=== PATIENT | male | born 1980 | race Caucasian/White ===

== ENCOUNTER 2019-06-21 20:17 | Emergency (ER) | payer OTHER, SELFPAY ==
--- NOTE | 2019-06-21 20:15 | DI.RAD_ITS ---
EXAM: XR CHEST 2V PA LATERAL CLINICAL HISTORY: chest pain TECHNIQUE: 2D digital imaging was performed. COMPARISON: No exams were available for comparison FINDINGS: Exam is limited by patient body habitus and suboptimal pulmonary inflation. Heart size is within nor mal limits. There is question of mild bilateral perihilar infiltrates versus mild pulmonary edema. No focal consolidation is seen. No effusions or pneumothorax is seen. IMPRESSION: Question of mild bilateral infiltrates.
[2019-06-21 20:26] VITALS: BP 163/98; PULSE 85; RESP 16; TEMP 37.1; O2SAT 97
[2019-06-21 20:29] VITALS: RESP 16
[2019-06-21 21:05] LABS: Abs Immature Grans 0.02 k/cumm (0.0-0.09); Absolute Basophil Count 0.01 k/cumm (0.0-0.2); Absolute Eosinophil Count 0.13 k/cumm (0.0-0.7); Absolute Lymphocyte Count 2.39 k/cumm (1.2-3.4); Absolute Monocyte Count 0.65 k/cumm (0.11-0.7); Absolute Neutrophil Count 3.37 k/cumm (1.2-6.7); Basophils % 0.2; HCT 41.8 % (40.0-50.0); HGB 14.5 g/dL (13.5-17.5); Immature Grans % 0.3 %; Lymphocytes % 36.4; Mean Corp. HGB Concentration 34.7 g/dL (32.0-36.0); Mean Corpuscular Hemoglobin 30.1 pg (27.0-33.0); Mean Corpuscular Volume 86.9 fL (80-95); Mean Platelet Volume 9.1 fL (8.0-11.0); Monocytes % 9.9; Neutrophils % 51.2; Platelet Count 282 x1000/uL (130-400); RBC 4.81 m/cumm (4.50-6.00); RBC Distribution Width 12.7 % (11.8-14.1); White Blood Cell Count 6.57 k/cumm (4.4-10.8)
--- NOTE | 2019-06-21 21:12 | DI.VRAD_ITS ---
PROCEDURE INFORMATION: Exam: XR Chest, 2 Views Exam date and time: 06/21/2019 8:56 PM Age: 38 years old Clinical indication: Other: Chest pain TECHNIQUE: Imaging protocol: XR of the chest Views: 2 views. COMPARISON: No relevant prior studies available. FINDINGS: Lungs: There is prominence of the interstitial markings. No focal consolidation. Pleural space: No pleural effusion. No pneumothorax. Heart/Mediastinum: Heart size is borderline. Bones/joints: Unremarkable. IMPRESSION: Prominent interstitial markings may be related to edema. Dictated and Authenticated by: Nicolas Robledo MD. Ordering:NITESH Casarez MD
[2019-06-21 21:17] LABS: ALT 88 U/L (16-63); AST 23 U/L (15-37); Albumin 4.1 g/dL (3.4-5.0); Alkaline Phosphatase 75 U/L (46-116); Anion Gap 7.7 mmol/L (3-11); BUN 16 mg/dL (7-18); Bilirubin, Total 0.3 mg/dL (0.2-1.0); CO2 29.3 mmol/L (21.0-32.0); CREATININE 1.13 mg/dL (0.70-1.30); Calcium 9.1 mg/dL (8.5-10.1); Chloride 104 mmol/L (98-107); Glucose 95 mg/dL (74-106); Sodium 141 mmol/L (136-145); Total Protein 7.9 g/dL (6.4-8.2)
[2019-06-21 21:19] LABS: Troponin I < 0.05 ng/Ml (<0.06)
[2019-06-21] MEDS: Aspirin 81 MG CHEW 324 MG CH (21:30)
[2019-06-21 21:45] VITALS: BP 119/55; PULSE 68; RESP 16; O2SAT 96
[2019-06-21 21:57] LABS: NT-proBNP 9 pg/mL (<300)
--- NOTE | 2019-06-21 22:20 | ED.GENADUL_ITS ---
Discharge Plan Disposition Patient Disposition: HOME Condition: Stable Discharge Details Chief Complaint: Chest Pain Clinical Impression: Chest discomfort Primary Care Provider: Jayro Youssef ED Provider: Pernell Pak Discharge Instructions Instructions: Chest Pain (ED) Additional Instructions: At this time work-up in the ER did not reveal any emergent process. Please watch for new or evolving symptoms and return immediately to the ER. Otherwise I recommend contacting your primary care provider on Sunday for prompt outpatient reevaluation. If you notice any worsening of your symptoms, or any new symptoms such as vomiting, diarrhea, fever, chills, shortness of breath, chest pain, numbness, weakness, or fainting , please return immediately to the emergency department for reevaluation. Please follow up with your primary care provider as soon as possible for reassessment and reevaluation. As always, it was a pleasure participating in your medical care today. Referrals: Jayro Youssef MD [Primary Care Provider] - Medical Decision Making <CIERRA Venegas - Last Filed: 06/21/19 22:40> 38-year-old gentleman with a history of obesity, sleep apnea, hypertension, presents having had a fleeting chest sensation that lasted no more than 5 seconds around 730 this evening. Given had a brief episode of diaphoresis subsequently without treatment was asymptomatic. He appears well, nontoxic. Low suspicion for ACS. Per the PERC criteria, d-dimer not indicated. No recent illness or trauma. Will give a full aspirin and obtain cardiac work-up. EKG performed at 2035 reviewed and interpreted by Dr. Pak, sinus rhythm, ventricular of 78. No acute ST elevation or depression segments. Of note, EKG was performed with an appropriate time of patient entering the ER however there was difficulty with transmission so EKG had to be performed again Patient returned from x-ray, upon reevaluation he remains asymptomatic Initial work-up here in the ER reveals a blood cell count of 6.57 unremarkable as relates, normal renal function, magnesium of 2.0, troponin of less than 0.05 and a BNP of 9. Chest x-ray was read by virtual radiology as prominent inters titial markings which may be related to edema, and this prompted my ordering of the BNP. He has no pedal edema, clinically no signs of CHF. No evidence of hypoxia. Lungs are clear to auscultation. Discussed initial work-up with patient. He is remaining asymptomatic. No symptoms under my care. We discussed the importance of delta troponin at 3 hours. Patient is agreeable to this plan and has no additional questions or concerns. Medical Records Medical records reviewed: Yes I reviewed the patient's medical records. Imaging Data Radiologic Study: Attestation: I personally reviewed and interpreted this imaging study as follows: Imaging: X-Ray My impression: Chest x-ray read by me as no infiltrates. Radiology reports prominent interstitial markings. Could be related to edema Lab Data Lab results reviewed: Yes I reviewed the patient's lab results. Lab results narrative: Laboratory Tests Range/Units 06/21/19 06/21/19 06/21/19 20:27 20:27 20:27 WBC (4.4-10.8) k/cumm 6.57 RBC (4.50-6.00) m/cumm 4.81 Hgb (13.5-17.5) g/dL 14.5 Hct (40.0-50.0) % 41.8 MCV (80-95) fL 86.9 MCH (27.0-33.0) pg 30.1 MCHC (32.0-36.0) g/dL 34.7 RDW (11.8-14.1) % 12.7 Plt Count (130-400) x1000/uL 282 MPV (8.0-11.0) fL 9.1 Immature Gran % % 0.3 Neutrophils % 51.2 Lymphocytes % 36.4 Monocytes % 9.9 Eosinophils % 2.0 Basophils % 0.2 Absolute Neutrophils (1.2-6.7) k/cumm 3.37 Absolute Lymphocytes (1.2-3.4) k/cumm 2.39 Absolute Monocytes (0.11-0.7) k/cumm 0.65 Absolute Eosinophils (0.0-0.7) k/cumm 0.13 Absolute Basophils (0.0-0.2) k/cumm 0.01 Sodium (136-145) mmol/L 141 Potassium (3.5-5.1) mmol/L 4.0 Chloride (98-107) mmol/L 104 Carbon Dioxide (21.0-32.0) mmol/L 29.3 Anion Gap (3-11) mmol/L 7.7 BUN (7-18) mg/dL 16 Creatinine (0.70-1.30) mg/dL 1.13 Estimated GFR/1.73 m2 (mL/min/1.73m2) >= 60.00 Glucose (74-106) mg/dL 95 Calcium (8.5-10.1) mg/dL 9.1 Magnesium (1.8-2.4) mg/dL 2.0 Total Bilirubin (0.2-1.0) mg/dL 0.3 AST (15-37) U/L 23 ALT (16-63) U/L 88 H Alkaline Phosphatase (46-116) U/L 75 Troponin I (<0.06) ng/Ml < 0.05 NT-Pro-B Natriuret Pep (<300) pg/mL 9 Total Protein (6.4-8.2) g/dL 7.9 Albumin (3.4-5.0) g/dL 4.1 <Pernell Pak DO - Last Filed: 06/21/19 23:54> Patient was signed out to me by my colleague Hermelindo, pending repeat troponin repeat EKG. Repeat troponin is still within normal limits, patient's heart score is in the lowest risk category. Repeat EKG shows no evidence of STEMI. This time the patient signs and symptoms appear clinically inconsistent with PE, dissection, or STEMI. Patient feels well and would like to go home. I think this is very reasonable at this time. Discussed red flags which to return. I have extensively reviewed the treatment plan and discharge instructions with the patient. I have addressed all patient concerns at this time. The patient was made aware of what symptoms to monitor for that would warrant a return to the emergency department. Discussed the plan with the patient, they demonstrate verbal understanding and agreement with our assessment and plan at this time. EKG 23: 45 Rate 66, sinus rhythm, MT 162, QTc 432, QRS 112, no significant ST elevations or depressions, no evidence of STEMI. Inverted T wave present in lead III, unchanged. HPI <CIERRA Venegas - Last Filed: 06/21/19 22:40> General Mode of arrival: ambulatory . Date/Time Provider Initiated Documentation: 06/21/19 20:26 . Limitations to Documentation: no limitations . Information obtained by: patient . HPI Narrative: This is a 38-year-old gentleman with a history of obesity, sleep apnea, hypertension, presenting to the ER for evaluation. He reports an episode of fleeting chest sensation that occurred around 730 this evening and lasted for no more than 5 seconds. He then developed cold sweats that lasted no more than 1 minute. He denies any chest pain or pressure whatsoever. He reports that he has difficulty describing the sensation but it would feel as though he was going to give a speech in front of a large crowd. He reports increased stress over the past few weeks given his home, work, and pandemic situation. He reports that he is currently asymptomatic. He denies any recent illness or trauma. He does report that he had a zoom chat last night with multiple friends, he was up until about 1230, and did drink alcohol. He reports waking up this morning and feeling hung over. He denies any cardiac history and denies any early cardiac history in his family. The sensation in his chest did not radiate anywhere. Denies any jaw pain, back pain, pain rating to the shoulders, abdomen, back. Related Data Allergies Allergy/AdvReac Type Severity Reaction Status Date / Time Anesthetics - Amide Type Allergy Unverified 07/12/17 16:10 General Stated Complaint: Chest Pain SOPHIA: 2 Review of Systems <CIERRA Venegas - Last Filed: 06/21/19 22:40> Constitutional Constitutional: Denies fatigue, Denies fever(s), Denies headache(s) and Denies weakness Eyes Eyes: Denies change in vision ENT Ears, Nose, Mouth, and Throat: Denies dizziness, Denies headache(s), Denies neck pain and Denies sore throat Cardiovascular Cardiovascular: Denies syncope, Denies lightheadedness, Denies radiating jaw, neck or arm pain and Denies dyspnea Respiratory Respiratory: Denies cough and Denies dyspnea Gastrointestinal Gastrointestinal: Denies abdominal pain, Denies diarrhea and Denies nausea Musculoskeletal Musculoskeletal: Denies back pain, Denies neck pain, Denies numbness and Denies tingling Integumentary/Breasts Skin/Breast: Denies rash Neurologic Neurologic: Denies dizziness, Denies syncope, Denies headache(s), Denies numbness, Denies tingling and Denies weakness Endocrine Endocrine: Denies fatigue [facility] <CIERRA Venegas - Last Filed: 06/21/19 22:40> Medical History Concussion (Inactive) Wrist fracture (Inactive) Family History Mother No problems noted. Father No problems noted. Sister No problems noted. Grandfather Essential hypertension Personal history of malignant neoplasm Hyperlipidemia Grandfather Heart disease Stroke Grandmother Essential hypertension Personal history of malignant neoplasm Hyperlipidemia Grandmother Stroke Social History Smoking/Tobacco Use Status: Never Alcohol Intake: current Alcohol Intake frequency: a few times a week Alcohol type: beer Drug use: Never Substance use type: does not use Do you feel safe at home: Yes Do you feel safe in your relationship?: Yes Exam <CIERRA Venegas - Last Filed: 06/21/19 22:40> Const General: cooperative, healthy appearing, comfortable and no acute distress Orientation: alert, awake and oriented x3 HENMT Head: normal to inspection, normocephalic and atraumatic Mouth: moist mucous membranes Throat: posterior oropharynx normal Eyes Conjunctivae: conjunctivae normal Neck Neck: normal visual inspection, full ROM, no lymphadenopathy, trachea midline and supple Resp Effort & Inspection: normal respiratory effort and able to speak in complete sentences Auscultation: clear to auscultation bilaterally Cardio Rate: regular rate Rhythm: regular rhythm GI Inspection: normal to inspection Palpation: soft, not firm, no guarding, not rigid and nontender Auscultation: normal bowel sounds Back/Spine/Pelvis Back: No back tenderness Skin General skin exam: no rashes or lesions noted Neuro General: patient alert, patient awake, moves all extremities and no focal motor deficits Motor: muscle tone normal throughout Sensory Exam: no sensory deficits noted Extrem General: normal to inspection, full ROM and capillary refill normal Psych Appearance: grossly normal Mental Status: mental status grossly normal Course <CIERRA Venegas - Last Filed: 06/21/19 22:40> Vital Signs Vital signs: Vital Signs Temperature 37.1 C 06/21/19 20:26 Pulse 85 06/21/19 20:26 Respiratory Rate 16 06/21/19 20:26 Blood Pressure 163/98 H 06/21/19 20:26 Pulse Oximetry 97 06/21/19 20:26 Temperature 37.1 C 06/21/19 20:26 Temperature Source Skin 06/21/19 20:26 Pulse 85 06/21/19 20:26 Respiratory Rate 16 06/21/19 20:29 Respiratory Effort 06/21/19 20:29 Respiratory Depth Normal 06/21/19 20:29 Respiratory Pattern Normal 06/21/19 20:29 Blood Pressure 163/98 H 06/21/19 20:26 Blood Pressure Position Sitting 06/21/19 20:26 Pulse Oximetry 97 06/21/19 20:26 Oxygen Delivery Method Room Air 06/21/19 20:26 Oxygen Flow Rate 0 06/21/19 20:26 Pain Level 0 06/21/19 20:26 Lab/Test Results Lab/Test Results: Laboratory Tests Range/Units 06/21/19 06/21/19 06/21/19 20:27 20:27 20:27 WBC (4.4-10.8) k/cumm 6.57 RBC (4.50-6.00) m/cumm 4.81 Hgb (13.5-17.5) g/dL 14.5 Hct (40.0-50.0) % 41.8 MCV (80-95) fL 86.9 MCH (27.0-33.0) pg 30.1 MCHC (32.0-36.0) g/dL 34.7 RDW (11.8-14.1) % 12.7 Plt Count (130-400) x1000/uL 282 MPV (8.0-11.0) fL 9.1 Immature Gran % % 0.3 Neutrophils % 51.2 Lymphocytes % 36.4 Monocytes % 9.9 Eosinophils % 2.0 Basophils % 0.2 Absolute Neutrophils (1.2-6.7) k/cumm 3.37 Absolute Lymphocytes (1.2-3.4) k/cumm 2.39 Absolute Monocytes (0.11-0.7) k/cumm 0.65 Absolute Eosinophils (0.0-0.7) k/cumm 0.13 Absolute Basophils (0.0-0.2) k/cumm 0.01 Sodium (136-145) mmol/L 141 Potassium (3.5-5.1) mmol/L 4.0 Chloride (98-107) mmol/L 104 Carbon Dioxide (21.0-32.0) mmol/L 29.3 Anion Gap (3-11) mmol/L 7.7 BUN (7-18) mg/dL 16 Creatinine (0.70-1.30) mg/dL 1.13 Estimated GFR/1.73 m2 (mL/min/1.73m2) >= 60.00 Glucose (74-106) mg/dL 95 Calcium (8.5-10.1) mg/dL 9.1 Magnesium (1.8-2.4) mg/dL 2.0 Total Bilirubin (0.2-1.0) mg/dL 0.3 AST (15-37) U/L 23 ALT (16-63) U/L 88 H Alkaline Phosphatase (46-116) U/L 75 Troponin I (<0.06) ng/Ml < 0.05 NT-Pro-B Natriuret Pep (<300) pg/mL 9 Total Protein (6.4-8.2) g/dL 7.9 Albumin (3.4-5.0) g/dL 4.1 Sign Out <CIERRA Venegas - Last Filed: 06/21/19 22:40> Sign Out Data: Sign Out Comment: At time of signout patient was asymptomatic. Awaiting repeat EKG and delta troponin. Last updated by Hermelindo Grant PA at 06/21/19 22:38
[2019-06-21 23:47] LABS: Troponin I < 0.05 ng/Ml (<0.06)
[2019-06-21 23:57] VITALS: BP 145/87; PULSE 65; RESP 16; TEMP 36.7; O2SAT 96
== END 2019-06-22 00:10 | disposition home or self-care (01) ==
PROVIDERS: Physician Assistant; Emergency Provider Student in an Organized Health Care Education/Training Program; PCP Family Medicine
DX: R07.89 Other chest pain (principal); R91.8 Other nonspecific abnormal finding of lung field; I10 Essential (primary) hypertension
CPT/HCPCS: 80053; 93005; 99283; 71046; 83735; 83880; 84484; 85025; 93010

== ENCOUNTER 2021-03-25 08:38 | Outpatient (CLI) | payer OTHER, SELFPAY ==
--- OUTSIDE RECORDS SUMMARY | 2021-03-25 08:40 | XMS_ITS ---
:1980 Author Care Team Providers Name Role Phone [facility] MEDICAL RECORDS Primary Care Provider [phone] Allergies Code Code System Name Reaction Severity Status Onset Anesthetics - ? ? Active ? Amide Type - Select Amino Amides Medications Name Status Start Date Stop Date ? ? fexofenadine 180 mg tablet Completed 07/26/201501/24 1 (one) Tablet: qam - every morning zolpidem 5 mg tablet Completed 07/26/2015 01/25/2016 1 (one) Tablet: as directed Problems Name Status Onset Date Source ? Morbid Obesity Active 06/24/2018 ? Hypersomnia Active 06/24/2018 ? Restless Legs Active 06/24/2018 ? Obstructive Sleep Apnea Syndrome Active ? History Chronic Rhinitis Active ? History Sleep Disorder Unknown ? History Apnea Unknown ? History Snoring Unknown ? History Procedures None recorded. Results Lab Results None recorded. Past Encounters 10/05/2020 Obstructive Sleep Apnea Syndrome Petra Cisse [employer] WORKER: [address] [place] [phone], Ph. 05/25/2020 Obstructive Sleep Apnea Syndrome Petra Cisse [employer]: [address] [place] [phone], Ph. Social History Tobacco Smoking Status Never Smoker Vaccine List None recorded. Plan of Care Reminders Provider Appointments None ? ? recorded. Lab None ? ? recorded. Referral None ? ? recorded. Procedures None ? ? recorded. Surgeries None ? ? recorded. Imaging None ? ? recorded. Vitals 05/25/2020 08:00AM Office 15 Height Weight BMI Blood Pressure 187.96 cm 138.8 kg 39.3 kg/m2 146/84 mm[Hg] 06/24/2018 08:00AM New Patient 44 Height Weight BMI Blood Pressure 187.96 cm 134.4 kg 38 kg/m2 138/92 mm[Hg] 01/25/2016 Height Weight Blood Pressure 182.88 cm 131.34 kg 148/90 mm[Hg] 07/26/2015 Height Weight Blood Pressure 182.88 cm 135.17 kg 134/86 mm[Hg]
[2021-03-26 07:27] LABS: COVID-19 RT-PCR UVMMC Result Positive (Negative)
== END 2021-03-25 08:39 | disposition home or self-care (01) ==
PROVIDERS: Visit Provider Nurse Practitioner Family
DX: Z20.822 Contact with and (suspected) exposure to COVID-19 (principal)
CPT/HCPCS: U0003

== ENCOUNTER 2023-04-26 04:15 | Outpatient (CLI) | payer OTHER, SELFPAY ==
[2023-04-26 12:25] LABS: HCT 44.1 % (40.0-50.0); HGB 14.8 g/dL (13.5-17.5); MCHC 33.6 % (32.0-36.0); MCV 90 fL (80-95); MPV 9.9 fL (8.0-11.0); Platelet Count 234 10^3/uL (130-400); RBC 4.93 10^6/uL (4.36-5.78); RDW 12.3 % (11.8-14.1); RDW-SD 40.3 fL; WBC 5.02 10^3/uL (4.4-10.8)
[2023-04-26 12:56] LABS: ALT 69 U/L (16-63); AST 24 U/L (15-37); Alkaline Phosphatase 72 U/L (46-116); Anion Gap 9.6 mmol/L (3-11); BUN 14 mg/dL (7-18); Bilirubin, Total 0.5 mg/dL (0.2-1.0); CO2 28.4 mmol/L (21.0-32.0); Calcium 9.2 mg/dL (8.5-10.1); Calculated LDL 111 mg/dL (<100); Chloride 105 mmol/L (98-107); Cholesterol 176 mg/dL (<200); Estimated GFR 95.77 (mL/min/1.73m2); Glucose 97 mg/dL (74-106); HDL Cholesterol 47 mg/dL (40-60); Potassium 4.3 mmol/L (3.5-5.1); Sodium 143 mmol/L (136-145); TSH (W/Ref FT4) 2.43 uIU/mL (0.36-3.74); Total Protein 7.8 g/dL (6.4-8.2); Triglyceride 92 mg/dL (<150)
== END 2023-04-26 04:16 | disposition home or self-care (01) ==
LOC: LOS 04:15
PROVIDERS: PCP Nurse Practitioner Family; Visit Provider Nurse Practitioner Family
DX: Z00.00 Encounter for general adult medical examination without abnormal findings (principal); I10 Essential (primary) hypertension; E66.9 Obesity, unspecified
CPT/HCPCS: 36415; 80053; 80061; 85027; 84443